=== PATIENT | female | born 1990 | race Caucasian/White ===

== ENCOUNTER 2016-03-26 17:27 | Inpatient (IN) | payer OTHER ==
[~2016-03-26] VITALS: Ht 175.3 cm; Wt 74.2 kg
[~2016-03-26 17:27] MED LIST: DOXYCYCLINE 10100 MG PO; METRONIDAZOLE500 MG PO; NO HOME MEDICATIONS
[2016-03-26 18:45] VITALS: BP 125/72; PULSE 88; TEMP 97.7
[2016-03-26] MEDS ORDERED: EFFEXOR XR75 MG/CAP PO (19:01)
[2016-03-26] MEDS ORDERED: SPRINTEC 35 MCG1 TAB PO (19:01)
[2016-03-26 19:28] LABS: INR 1.1 (0.8-3.0); PROTHROMBIN TIME 12.6 SECONDS (9.7-12.8)
[2016-03-26 19:31] LABS: PARTIAL THROMBOPLASTIN TIME 34.1 SECONDS (26.0-37.0)
[2016-03-26 19:54] LABS: LACTATE DEHYDROGENASE 642 U/L (313-618)
[2016-03-26 20:48] VITALS: BP 101/57; PULSE 82; TEMP 98.1
[2016-03-27 00:21] VITALS: BP 121/60; PULSE 89; TEMP 98.4
[2016-03-27 04:10] VITALS: BP 103/47; PULSE 86; TEMP 98.7
[2016-03-27 05:05] LABS: PH 5 (5-8); SQUAMOUS EPITHELIAL 0-2 /hpf; URINE APPEARANCE Clear; URINE BACTERIA Rare /hpf; URINE BILIRUBIN Positive (NEGATIVE); URINE BLOOD 1+ (NEGATIVE); URINE COLOR Amber; URINE GLUCOSE Negative (NEGATIVE); URINE KETONE Negative (NEGATIVE); URINE RBC 0-2 /hpf; URINE UROBILINOGEN >=4.0 mg/dL (NEGATIVE); URINE WBC 0-2 /hpf
[2016-03-27 05:11] LABS: AMPHETAMINE URINE NEGATIVE; BARBITURATES URINE NEGATIVE; BENZODIAZEPINES URINE NEGATIVE; BUPRENORPHINE URINE NEGATIVE; METHADONE URINE NEGATIVE; OPIATES URINE POSITIVE; OXYCODONE URINE NEGATIVE; PHENCYCLIDINE URINE NEGATIVE; PROPOXYPHENE URINE NEGATIVE; THC CANNABINOIDS URINE NEGATIVE
[2016-03-27 07:42] LABS: BASO % 0.3 % (0.0-2.0); EOS % 0.1 % (0-4.0); GRAN # 4.5 (1.4-6.5); GRAN % 62.4 % (42.2-75.2); HEMATOCRIT 38.8 % (37.0-47.0); HEMOGLOBIN 13.1 g/dl (12.5-16.0); LYMPH # 1.5 (1.2-3.4); LYMPH % 21.3 % (20.0-51.0); MEAN CELL VOLUME 88 fl (80.0-100.0); MEAN CORPUSCULAR HEMOGLOBIN 30 pg (27.0-31.0); MEAN CORPUSCULAR HGB CONC 34 g/dl (33.0-37.0); MEAN PLATELET VOLUME 12.3 fl (7.4-10.4); MONO # 1.1 (0.1-0.6); MONO % 15.6 % (1.7-9.3); PLATELET COUNT 242 K/mm3 (130-400); REDCELL DISTRIBUTION WIDTH-CV 14.4 % (11.5-14.5); WHITE BLOOD COUNT 7.2 K/mm3 (4.8-10.8)
[2016-03-27 07:55] LABS: ALBUMIN 2.9 gm/dL (3.5-5.0); BILIRUBIN,DIRECT 8.2 mg/dL (0.0-0.4); BILIRUBIN,TOTAL 9.6 mg/dL (0.0-1.0); CALCIUM 8.4 mg/dL (8.4-10.2); CREATININE, serum 0.54 mg/dL (0.52-1.25); POTASSIUM 3.1 mmol/L (3.4-5.0)
[2016-03-27 09:18] VITALS: BP 114/57; PULSE 82; TEMP 99
[2016-03-27 11:28] VITALS: BP 114/59; PULSE 79; TEMP 98.2
[2016-03-27 11:46] LABS: INR 1.2 (0.8-3.0); PROTHROMBIN TIME 13.3 SECONDS (9.7-12.8)
[2016-03-27 15:37] VITALS: BP 110/58; PULSE 73; TEMP 98.2
== END 2016-03-27 17:45 | disposition home or self-care (01) | DRG 443 ==
LOC: MEDICAL 17:27
PROVIDERS: Family Medicine; Nurse Practitioner Family
DX: B17.10 Acute hepatitis C without hepatic coma (principal); F16.10 Hallucinogen abuse, uncomplicated; F10.10 Alcohol abuse, uncomplicated; F32.9 Major depressive disorder, single episode, unspecified; F17.210 Nicotine dependence, cigarettes, uncomplicated; B35.4 Tinea corporis
CPT/HCPCS: 99222-AI; C9113; J1650; J2543; J7030; J7050

== ENCOUNTER 2016-03-29 20:48 | Emergency (ER) | payer OTHER ==
[~2016-03-29] VITALS: Ht 175.3 cm; Wt 72.7 kg
[~2016-03-29 20:48] MED LIST changes: +EFFEXOR XR75 MG/CAP PO; +SPRINTEC 35 MCG1 TAB PO
[2016-03-29 20:51] VITALS: TEMP 98.3
[2016-03-29 21:32] LABS: BASO % 0.4 % (0.0-2.0); GRAN # 4.5 (1.4-6.5); HEMATOCRIT 39.5 % (37.0-47.0); HEMOGLOBIN 13.3 g/dl (12.5-16.0); LYMPH # 2.6 (1.2-3.4); LYMPH % 31.1 % (20.0-51.0); MEAN CELL VOLUME 88 fl (80.0-100.0); MEAN CORPUSCULAR HEMOGLOBIN 30 pg (27.0-31.0); MEAN CORPUSCULAR HGB CONC 34 g/dl (33.0-37.0); MEAN PLATELET VOLUME 11.5 fl (7.4-10.4); MONO # 1.3 (0.1-0.6); MONO % 15.1 % (1.7-9.3); PLATELET COUNT 270 K/mm3 (130-400); RED BLOOD COUNT 4.49 M/mm3 (4.10-5.30); REDCELL DISTRIBUTION WIDTH-CV 14.6 % (11.5-14.5); WHITE BLOOD COUNT 8.4 K/mm3 (4.8-10.8)
[2016-03-29 21:39] LABS: ADJUSTED CALCIUM 9.4 mg/dL (8.4-10.2); ALBUMIN 3.5 gm/dL (3.5-5.0); CREATININE, serum 0.51 mg/dL (0.52-1.25); POTASSIUM 3.4 mmol/L (3.4-5.0); TOTAL PROTEIN 7.1 gm/dL (6.4-8.2)
[2016-03-29 21:49] LABS: BILIRUBIN,DIRECT 12.7 mg/dL (0.0-0.4); BILIRUBIN,TOTAL 14.5 mg/dL (0.0-1.0)
[2016-03-29 21:56] LABS: INR 1.1 (0.8-3.0); PROTHROMBIN TIME 12.5 SECONDS (9.7-12.8)
[2016-03-29] MEDS ORDERED: ZOFRAN8 MG PO (22:17)
[2016-03-29 22:40] VITALS: BP 115/75; PULSE 83
== END 2016-03-29 22:42 | disposition home or self-care (01) ==
LOC: COL.ER 20:48
PROVIDERS: Emergency Medicine
DX: B17.10 Acute hepatitis C without hepatic coma (principal)
CPT/HCPCS: J2405; J7030

== ENCOUNTER → 2016-04-02 | Outpatient (REF) ==
[~2016-04-02] MED LIST changes: +ZOFRAN8 MG PO
[2016-04-02 16:16] LABS: HIV 1/2 Antibodies Non-Reactive; HIV-1p24 Antigen Non-Reactive
== END ==
LOC: ZLAB.WCH 14:59
PROVIDERS: Nurse Practitioner Family
DX: Z01.89 Encounter for other specified special examinations (principal)